=== PATIENT | female | born 1990 | race Caucasian/White ===

== ENCOUNTER 2016-11-30 16:50 | Emergency (ER) | payer BC ==
[~2016-11-30] VITALS: Ht 157.5 cm; Wt 104.3 kg
[2016-11-30 16:53] VITALS: BP 133/60
--- NOTE | 2016-11-30 17:16 | PHYS DOC ---
Past Medical History Past Medical History: Asthma Past Surgical History: No Surgical History Alcohol Use: Occasionally Drug Use: None Adult General Chief Complaint Chief Complaint: ANKLE PROBLEM HPI HPI Patient is a 26 year old female with a history of asthma who presents today with mild right lateral ankle pain that began yesterday after she rolled her ankle. Patient states her pain is worse when she is ambulating. Review of Systems Review of Systems Constitutional: Denies fever or chills []] Musculoskeletal: Right lateral ankle pain Integument: Denies rash or skin lesions [] Neurologic: Denies headache, focal weakness or sensory changes [] Endocrine: Denies polyuria or polydipsia [] Allergies Allergies Allergies Coded Allergies Type Severity Reaction Last Updated Verified No Known Drug Allergies 11/30/16 No Physical Exam Physical Exam Constitutional: Well developed, well nourished, no acute distress, non-toxic appearance. [] Back: No tenderness, no CVA tenderness. [] Extremities: Right lateral ankle with small amount of soft tissue swelling. No obvious deformity to the right ankle. Tenderness on palpation of the right lateral ankle. Full range of motion to the right ankle and foot. Adequate flexion and extension of the right foot. +2 right pedal pulse. Cap refill less than 2 seconds the right lower extremity. Sensation intact to the right lower extremity. Neurologic: Alert and oriented X 3, normal motor function, normal sensory function, no focal deficits noted. [] Psychologic: Affect normal, judgement normal, mood normal. [] Current Patient Data Vital Signs Vital Signs Date Time Temp Pulse Resp B/P Pulse Ox O2 Delivery O2 Flow Rate FiO2 11/30/16 16:53 97.8 85 18 100 Room Air 97.8 EKG EKG [] Radiology/Procedures Radiology/Procedures [] Course & Med Decision Making Course & Med Decision Making Pertinent Labs and Imaging studies reviewed. (See chart for details) Patient is in the ED with right ankle pain after rolling it yesterday. Right ankle x-rays interpreted by Dr. Juan is negative for any acute findings. Patient probably sprained right ankle. Aircast applied to the right ankle by the ED RN, neurovascular exam done by me is normal, ice elevation encouraged. OTC. Relievers especially anti-inflammatories recommended. Follow-up with Ortho in one week if pain continues. Dragon Disclaimer Dragon Disclaimer This electronic medical record was generated, in whole or in part, using a voice recognition dictation system. Departure Departure Impression: Primary Impression: Right ankle sprain Disposition: HOME, SELF-CARE Condition: STABLE Referrals: NON,STAFF (PCP) STEFANIA CONTRERAS MD follow-up with your primary care doctor or the orthopedic doctor in one week Patient Instructions: Ankle Sprain Additional Instructions: You were seen for right ankle sprain. Wear the air cast as tolerated and needed. Ice and elevate the extremity. Take [id number] pain relievers especially anti-inflammatories as needed for pain. Follow-up with the provided orthopedic doctor or your own doctor in 1-2 weeks if pain continues. Scripts Naproxen 500 Mg Tablet.dr1 Tab PO BID #[id number] TAB Ref 1 Prov:YAIR PADILLA APRN 11/30/16 Problem Qualifiers Primary Impression: Right ankle sprain Encounter type: initial encounter Involved ligament of ankle: unspecified ligament Qualified Code: S93.401A - Sprain of unspecified ligament of right ankle, initial encounter YAIR PADILLA APRN Nov 30, 2016 17:16
[2016-11-30] MEDS ORDERED: NAPR500T8 PO (18:09)
--- NOTE | 2016-12-01 07:34 | RAD ---
Right ankle, 3 views, 11/30/2016: History: Ankle pain No fracture or dislocation is identified. No significant arthritic change is seen. IMPRESSION: No acute right ankle abnormality is detected.
== END 2016-11-30 18:27 | disposition home or self-care (01) ==
LOC: ER 16:50
DX: S93.401A Sprain of unspecified ligament of right ankle, initial encounter (principal); J45.909 Unspecified asthma, uncomplicated; X58.XXXA Exposure to other specified factors, initial encounter; Y93.89 Activity, other specified; Y92.89 Other specified places as the place of occurrence of the external cause; Y99.8 Other external cause status
CPT/HCPCS: 73610; 81025; 99284; L4350